=== PATIENT | female | born 2000 | race Caucasian/White ===

== ENCOUNTER 2025-06-07 08:29 | Outpatient (CLI) | payer OTHER, SELFPAY ==
[2025-06-07 15:14] LABS: Chlamydia DNA Amplified* NOT DETECTED (No Detected); GC DNA Amplified* NOT DETECTED (No Detected)
[2025-06-11 11:23] LABS: Pap Test Digital Imaging Done
== END 2025-06-07 08:30 | disposition home or self-care (01) ==
PROVIDERS: PCP Physician Assistant Medical; Visit Provider Physician Assistant Medical
DX: Z00.00 Encounter for general adult medical examination without abnormal findings (principal); R21 Rash and other nonspecific skin eruption
CPT/HCPCS: 80061; 82306; 82784; 82947; 84443; 86231; 86258; 86364; 86376; 87491; 87591; 88141; 88142; 88175